=== PATIENT | female | born 1985 | race Caucasian/White ===

== ENCOUNTER → 2020-01-09 10:21 | Outpatient (BNVA) | payer OTHER, SELFPAY | PROVIDERS: PCP Family Medicine; Visit Provider Registered Nurse | DX: Z02.1 Encounter for pre-employment examination (principal) | CPT/HCPCS: 80307 ==

== ENCOUNTER → 2020-07-31 10:46 | Outpatient (BNVA) | payer MEDICAID, SELFPAY | PROVIDERS: PCP Family Medicine; Visit Provider Nurse Practitioner Family | DX: Z11.59 Encounter for screening for other viral diseases (principal); Z20.828 Contact with and (suspected) exposure to other viral communicable diseases; R05 Cough | CPT/HCPCS: 87635 ==

== ENCOUNTER → 2020-11-18 09:47 | Outpatient (BNVA) | payer MEDICAID, SELFPAY | PROVIDERS: PCP Registered Nurse; Visit Provider Registered Nurse | DX: M54.5 Low back pain (principal); S29.012A Strain of muscle and tendon of back wall of thorax, initial encounter; X58.XXXA Exposure to other specified factors, initial encounter | CPT/HCPCS: 81000 ==

== ENCOUNTER 2021-02-02 12:28 | Outpatient (CLI) | payer MEDICAID, SELFPAY ==
--- NOTE | 2021-02-02 12:36 | XRR_ITS ---
PROCEDURE INFORMATION: Exam: XR Cervical Spine Exam date and time: 02/02/2021 12:48 PM Age: 35 years old Clinical indication: Cervicalgia; Patient HX: Right arm numbness, fall in 2012 chronic pain since; Additional info: M54.2 - cervicalgia TECHNIQUE: Imaging protocol: XR of the cervical spine. Views: 2 or 3 views. COMPARISON: No relevant prior studies available. FINDINGS: Bones/joints: Diminished cervical lordosis and degenerative change. Anatomic alignment. Soft tissues: Unremarkable. XR/XR cervical spine 3V* [id number] IMPRESSION: Diminished cervical lordosis and degenerative change.
--- NOTE | 2021-02-02 12:36 | XRR_ITS ---
PROCEDURE INFORMATION: Exam: XR Thoracic Spine Exam date and time: 02/02/2021 12:48 PM Age: 35 years old Clinical indication: Other: Strain of muscle and tendon of unspecified wall of thorax; Additional info: S29.019a - strain of muscle and tendon of unspecified wall of thorax, initial encounter TECHNIQUE: Imaging protocol: XR of the thoracic spine. Views: 3 views. COMPARISON: No relevant prior studies available. FINDINGS: Bones/joints: No acute osseous pathology. Anatomic alignment. Subtle scoliosis. Soft tissues: Normal caliber of the paraspinous soft tissues. XR/XR thoracic spine 3V* [id number] IMPRESSION: No acute osseous pathology.
== END 2021-02-02 12:29 | disposition home or self-care (01) ==
LOC: RAD 12:35
PROVIDERS: PCP Registered Nurse; Visit Provider Nurse Practitioner Family
DX: M54.2 Cervicalgia (principal); S29.019A Strain of muscle and tendon of unspecified wall of thorax, initial encounter; X58.XXXA Exposure to other specified factors, initial encounter
CPT/HCPCS: 72040; 72072

== ENCOUNTER 2021-03-02 09:27 | Outpatient (CLI) | payer MEDICAID, SELFPAY ==
--- NOTE | 2021-03-02 09:30 | MR_ITS ---
WS: [id number] MRI CERVICAL SPINE NONCONTRAST HISTORY: M54.12 - Radiculopathy, cervical region COMPARISON: Cervical radiograph 02/02/2021 Technique: Multiplanar, multisequence noncontrast imaging of the cervical spine. Posterior alignment is normal. Very minimal disc space narrowing at C5-6 and C6-7. Signal within the cervical cord is normal. Visualized posterior fossa is unremarkable. Craniocervical junction, C1 and C2 relationship, odontoid process and soft tissues are normal. C2-C3: Normal. C3-C4: Very slight annular disc bulging. Mild osteophytic ridging. Mild narrowing of the proximal for amen due to osteophyte disease. Slightly greater on the LEFT. C4-C5: Diffuse annular disc bulging and osteophytic ridging. RIGHT paracentral osteophyte or disc ost eophyte complex causing mild deformity the ventral thecal sac but no significant stenosis or cord con tact. C5-C6: Mild osteophytic ridging greatest into the LEFT foramen. Mild posterior displacement of the ex iting nerve roots but no significant stenosis. C6-C7: Moderate diffuse bilateral osteophytic ridging. There is a central disc protrusion with annula r fissure. Near cord contact on the central disc protrusion. Mild RIGHT with moderate to severe LEFT foraminal stenosis and mild facet arthritis. C7-T1: Normal. There is an additional small protrusion at the T1-2 and T2-3 levels in the RIGHT foramen. No signific ant stenosis identified but only visualized on the sagittal projection. 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 MR/MR cervical spin wo con* [id number] IMPRESSION: 1. Multilevel disc osteophyte disease as described above. 2. Moderate to severe LEFT foraminal stenosis and facet arthritis at C6-7 with mild central and RIGHT foraminal stenosis. Predominantly due to combination of osteophytes and disc disease. 3. Mild narrowing of the LEFT foramen at C5-6 predominantly due to osteophyte disease. 4. Very small RIGHT paracentral disc or disc osteophyte complex at C4-5 withou t cord contact.
== END 2021-03-02 09:28 | disposition home or self-care (01) ==
PROVIDERS: PCP Nurse Practitioner Family; Visit Provider Nurse Practitioner Family
DX: M54.12 Radiculopathy, cervical region (principal); M48.02 Spinal stenosis, cervical region; M25.78 Osteophyte, vertebrae
CPT/HCPCS: 72141

== ENCOUNTER → 2021-03-17 11:13 | Outpatient (BNVA) | payer MEDICAID, SELFPAY | PROVIDERS: PCP Nurse Practitioner Family; Referring Provider Nurse Practitioner Family; Visit Provider Orthopaedic Surgery | DX: M25.551 Pain in right hip (principal) | CPT/HCPCS: 73502 ==

== ENCOUNTER 2021-05-12 06:00 | Outpatient (RCR) | payer MEDICAID, SELFPAY | END 2021-06-09 23:59 | disposition home or self-care (01) | LOC: SPT 06:00 | PROVIDERS: PCP Nurse Practitioner Family; Referring Provider Nurse Practitioner Family; Visit Provider Nurse Practitioner Family | DX: M48.02 Spinal stenosis, cervical region (principal) | CPT/HCPCS: 97110; 97161 ==

== ENCOUNTER 2021-06-10 06:00 | Outpatient (RCR) | payer MEDICAID, SELFPAY | END 2021-07-09 23:59 | disposition home or self-care (01) | LOC: SPT 06:00 | PROVIDERS: PCP Nurse Practitioner Family; Referring Provider Nurse Practitioner Family; Visit Provider Nurse Practitioner Family | DX: M48.02 Spinal stenosis, cervical region (principal) | CPT/HCPCS: 97110 ==

== ENCOUNTER 2021-07-07 06:00 | Outpatient (RCR) | payer MEDICAID, SELFPAY | END 2021-07-09 23:59 | disposition home or self-care (01) | LOC: SPT 06:00 | PROVIDERS: PCP Nurse Practitioner Family; Referring Provider Orthopaedic Surgery; Visit Provider Orthopaedic Surgery | DX: M25.551 Pain in right hip (principal) | CPT/HCPCS: 97110; 97161 ==

== ENCOUNTER 2021-07-10 06:00 | Outpatient (RCR) | payer MEDICAID, SELFPAY | END 2021-08-09 23:59 | disposition home or self-care (01) | LOC: SPT 06:00 | PROVIDERS: PCP Nurse Practitioner Family; Visit Provider Orthopaedic Surgery | DX: M25.551 Pain in right hip (principal) | CPT/HCPCS: 97110 ==

== ENCOUNTER 2021-08-10 06:00 | Outpatient (RCR) | payer MEDICAID, SELFPAY | END 2021-09-08 23:59 | disposition home or self-care (01) | LOC: SPT 06:00 | PROVIDERS: PCP Nurse Practitioner Family; Visit Provider Orthopaedic Surgery | DX: M25.551 Pain in right hip (principal) | CPT/HCPCS: 97110 ==

== ENCOUNTER 2021-09-09 06:00 | Outpatient (RCR) | payer MEDICAID, SELFPAY | END 2021-10-09 23:59 | disposition home or self-care (01) | LOC: SPT 06:00 | PROVIDERS: PCP Nurse Practitioner Family; Visit Provider Orthopaedic Surgery | DX: M25.551 Pain in right hip (principal) | CPT/HCPCS: 97110 ==

== ENCOUNTER → 2021-10-28 11:00 | Outpatient (BNVA) | payer MEDICAID, SELFPAY | PROVIDERS: PCP Nurse Practitioner Family; Visit Provider Nurse Practitioner Family | DX: Z20.822 Contact with and (suspected) exposure to COVID-19 (principal); R05.9 Cough, unspecified | CPT/HCPCS: 87633; 87635 ==

== ENCOUNTER → 2021-12-30 10:35 | Outpatient (BNVA) | payer MEDICAID, SELFPAY | PROVIDERS: PCP Nurse Practitioner Family; Visit Provider Nurse Practitioner Family | DX: R53.83 Other fatigue (principal); E78.5 Hyperlipidemia, unspecified; I10 Essential (primary) hypertension | CPT/HCPCS: 80053; 80061; 84443; 85025 ==

== ENCOUNTER → 2022-01-05 14:06 | Outpatient (BNVA) | payer MEDICAID, SELFPAY | PROVIDERS: PCP Nurse Practitioner Family; Visit Provider Nurse Practitioner Family | DX: Z12.4 Encounter for screening for malignant neoplasm of cervix (principal) | CPT/HCPCS: 88175 ==

== ENCOUNTER 2022-02-18 13:30 | Outpatient (CLI) | payer MEDICAID, SELFPAY ==
--- NOTE | 2022-02-18 13:41 | MM_ITS ---
WS: [id number] BILATERAL 3D TOMOSYNTHESIS DIGITAL SCREENING MAMMOGRAM WITH CAD CLINICAL INFORMATION: Z12.39 - Encounter for other screening for malignant neop... HISTORY: Screening mammogram. COMPARISON: April 06, 2010 TECHNIQUE: Bilateral CC and MLO. FINDINGS: The breast are composed of extremely dense tissue, which can limit the detection of small underlying mass lesions. 8mm ovoid density inner quadrant LEFT breast posterior depth at the chest wall. Recomme nd further evaluation with spot compression views and ultrasound. RIGHT breast is unremarkable. Incid ental punctate calcifications. MM/[place] [id number] IMPRESSION: BI-RADS: 0-Incomplete: Need additional imaging evaluation FOLLOW UP: Need Additional Imaging Recommend LEFT breast diagnostic mammography with spot compression views and ul trasound.
== END 2022-02-18 13:31 | disposition home or self-care (01) ==
LOC: RAD 13:33
PROVIDERS: PCP Nurse Practitioner Family; Visit Provider Nurse Practitioner Family
DX: R92.2 Inconclusive mammogram (principal); R92.1 Mammographic calcification found on diagnostic imaging of breast
CPT/HCPCS: 77063; 77067

== ENCOUNTER 2022-04-01 10:51 | Outpatient (CLI) | payer MEDICAID, SELFPAY ==
--- NOTE | 2022-04-01 11:03 | MM_ITS ---
WS: [id number] LEFT 3D TOMOSYNTHESIS DIGITAL MAMMOGRAPHY WITH CAD CLINICAL INFORMATION: N63.20 - Unspecified lump in the left breast, unspecified... COMPARISON: February 18, 2022 TECHNIQUE: 3 views of the left breast were obtained. FINDINGS: The left breast is composed of heterogeneous fibroglandular density tissue, which can limit the detec tion of small underlying mass lesions. 8 mm ovoid density inner quadrant LEFT breast posterior depth near the chest wall appears stable. Ultrasound is pending. ULTRASOUND BREAST LEFT TECHNIQUE: Ultrasound left breast focused area of concern. CLINICAL INFORMATION: N63.20 - Unspecified lump in the left breast, unspecified... COMPARISON: None. FINDINGS: Ultrasound LEFT breast at the 5 to 12:00 position. Several incidental simple cysts are identified lar gest 5:00 position measuring 9.3 x 8.2 x 11 mm. Ductal ectasia at the 6:00 position. Additional small er cysts at the 9:00 position measuring 4 to 6 mm. A few incidental septations. Findings are benign. MM/[place] [id number] IMPRESSION: BI-RADS: 2-Benign FOLLOW UP: 1 Year Follow-up Recommend return to annual screening mammography.
== END 2022-04-01 10:52 | disposition home or self-care (01) ==
LOC: RAD 10:53
PROVIDERS: PCP Nurse Practitioner Family; Visit Provider Nurse Practitioner Family
DX: N63.20 Unspecified lump in the left breast, unspecified quadrant (principal); N60.02 Solitary cyst of left breast
CPT/HCPCS: 76642; 77061

== ENCOUNTER 2022-07-14 04:45 | Emergency (ER) | payer MEDICAID, SELFPAY ==
[2022-07-14 04:49] VITALS: BP 133/78; PULSE 71; RESP 16; TEMP 36.7; O2SAT 94; BMI 25.0
--- NOTE | 2022-07-14 04:53 | XRR_ITS ---
PROCEDURE INFORMATION: Exam: XR Chest Exam date and time: 07/14/2022 4:56 AM Age: 36 years old Clinical indication: Patient HX: Sudden onset of upper back pain this a. M. No injury. TECHNIQUE: Imaging protocol: Radiologic exam of the chest. Views: 1 view. COMPARISON: MR cervical spin wo con* [id number] 03/02/2021 9:46 AM FINDINGS: Lungs: No focal airspace disease. Pleural spaces: Unremarkable. No pleural effusion. No pneumothorax. Heart/Mediastinum: Cardiomediastinal silhouette is within normal limits. Bones/joints: Unremarkable. XR/XR chest 1V portable [id number] IMPRESSION: No acute cardiopulmonary abnormality.
--- NOTE | 2022-07-14 04:53 | XRR_ITS ---
PROCEDURE INFORMATION: Exam: XR Thoracic Spine Exam date and time: 07/14/2022 4:56 AM Age: 36 years old Clinical indication: Pain in thoracic spine; Patient HX: Sudden onset of upper back pain this a. M. No injury. TECHNIQUE: Imaging protocol: Radiologic exam of the thoracic spine. Views: 3 views. COMPARISON: CR XR thoracic spine 3V* [id number] 02/02/2021 12:56 PM FINDINGS: Bones/joints: No acute fracture or malalignment. Disc spaces are maintained. Soft tissues: Unremarkable. XR/XR thoracic spine 3V* [id number] IMPRESSION: No acute fracture or malalignment.
[2022-07-14 04:54] VITALS: PULSE 71; RESP 17; O2SAT 98
--- NOTE | 2022-07-14 05:01 | ED_ITS ---
HPI - Back Pain/Injury General: Chief Complaint: Back Pain/Injury Stated Complaint: Sharp Pain Down hjer Spine Time Seen by Provider: 07/14/22 04:46 Source: patient Mode of arrival: ambulatory Limitations: no limitations History of Present Illness: 28-year-old female states that she got up out of bed and had a sudden severe sharp pain in her upper back into her left shoulder blade. She states that she has been having shooting pains from that shoulder over the last 2 weeks and has appointment a chiropractor. States the pain is severe had some slight blurred vision due to the pain states is since resolved her pain is currently a 1 out of 10. She has no weakness no numbness to her arms. She denies any worsening proving factors. Associated symptoms: Deny abdominal pain, chills, dysuria, fever(s), nausea or vomiting Review of Systems Const: Denies: fever(s), chills, body aches or change in appetite Eyes: Denies: blurry vision or eye discomfort ENMT: Denies: throat pain or dental pain Card: Denies: chest pain Resp: Denies: dyspnea GI: Denies: abdominal pain, nausea, vomiting or diarrhea : Denies: dysuria Musc: Reports: back pain Skin/Breast: Denies: rash Neuro: Denies: headache(s) Psych: Denies: depression Santo/Lymph: Denies: easy bruising All/Imm: Denies: urticaria PFSH ED PFSH: Medical History Cervical spine pain Surgical History Hx of section Hx of sinus surgery Hx of tonsillectomy Family History Father Cancer melanoma Social History Smoking and tobacco status: current every day smoker Female Reproductive History: Date of last menstrual period: 07/14/22 Physical Exam Const: COMMON NORMALS: no acute distress, patient oriented x3 and healthy appearing HENMT: COMMON NORMALS: normocephalic and atraumatic HEAD & SCALP: normocephalic and atraumatic Eye: COMMON NORMALS: Equal, round and reactive pupils present and EOMs intact bilaterally PUPIL: Yes Equal, round and reactive pupils present Neck/C-Spine: COMMON NORMALS: full ROM and supple Chest: COMMONS NORMALS: normal inspection of the chest and normal palpation of entire chest wall Resp: COMMON NORMALS: normal respiratory effort, No retractions, No use of accessory muscles and clear to auscultation bilaterally AUSCULTATION: clear to auscultation bilaterally Cardio: COMMON NORMALS: regular rate, regular rhythm and No murmurs present (Cardio) RATE: regular rate RHYTHM: regular rhythm GI: COMMON NORMALS: Normal to inspection, nondistended, normoactive bowel sounds present, Soft to palpation, non-tender and no masses PALPATION: Yes Soft to palpation Back/Pelvis: OTHER: Paraspinal tenderness along the T-spine no midline tenderness Extremity: COMMON NORMALS: normal to inspection and full ROM Neuro: COMMON NORMALS: patient oriented x3, moves all extremities and no focal motor deficits Psych: COMMON NORMALS: mental status grossly normal, Normal thought process present and cooperative THOUGHT PROCESS: Normal thought process present Skin: COMMON NORMALS: no rashes or lesions noted and no wounds GENERAL SKIN EXAM: no rashes or lesions noted Course Vital Signs: Vital signs: Vital Signs Temperature 98.1 F 07/14/22 04:49 Pulse Rate 71 07/14/22 04:54 Respiratory Rate 17 07/14/22 04:54 Blood Pressure 133/78 07/14/22 04:49 Pulse Oximetry 98 07/14/22 04:54 Oxygen Delivery Me thod 07/14/22 04:54 MDM - Back Pain/Injury Medical Decision Making Patient presents here with back pain is likely muscular in nature her pains improved here she has no signs of cord compression no signs of cardiac cause we will place her on Naprosyn Robaxin and she is stable for discharge she is return if worsening. Discharge Plan Discharge Patient Disposition: Home Clinical Impression: Thoracic back pain Condition: Stable Prescriptions: New methocarbamol 750 mg tablet 750 mg PO Q6H PRN (Reason: spasms) Qty: 20 0RF Naprosyn 500 mg tablet 500 mg PO BID PRN (Reason: pain) Qty: 20 0RF Discharge Orders: Discharge ED (Routine); Ordered 07/14/22 Ordered By: Khanh Espinosa Referrals: Ghassan,Cinthya, RETIREMENT ADMINISTRATOR [Primary Care Provider] - 1-3 days Discharge Diet: Advance as tolerated Discharge Activity: Resume usual activity Patient Instructions: Back Pain (ED) Coding Level of Care Code ED Acds Block 1 Operator for Leighann Fwd Exam Comprehensive
[2022-07-14] MEDS: ketorolac 30 mg/mL INJ IM (05:12)
[2022-07-14] MEDS: dexamethasone 10 mg/mL INJ IM (05:12)
--- NOTE | 2022-07-14 05:19 | ECG_ITS ---
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 Measurements Intervals [place] Rate: 64 P: 41 MO: 155 QRS: 31 QRSD: 93 T: 20 QT: 417 QTc: 432 Interpretive Statements SINUS RHYTHM WITH SINUS ARRHYTHMIA POSSIBLE RIGHT VENTRICULAR CONDUCTION DELAY [RSR (QR) IN V1/V2] No previous ECG available for comparison Electronically Signed On 07-14-2022 20:53:55 CDT by Abigail Curtis M.D. [id number]
[2022-07-14 05:22] VITALS: BP 133/78; PULSE 56; RESP 16; O2SAT 99
== END 2022-07-14 05:32 | disposition home or self-care (01) ==
PROVIDERS: Emergency Provider Emergency Medicine; PCP Nurse Practitioner Family
DX: M54.6 Pain in thoracic spine (principal); F17.210 Nicotine dependence, cigarettes, uncomplicated
CPT/HCPCS: 71045; 72072; 93005; 96372; 99284; J1100; J1885

== ENCOUNTER 2022-09-13 10:46 | Outpatient (CLI) | payer MEDICAID, SELFPAY ==
--- NOTE | 2022-09-13 10:54 | XR_ITS ---
WS: [id number] EXAMINATION: XR shoulder LT min 2V* [id number] DATE: 09/13/2022 11:05 AM CLINICAL HISTORY: Left shoulder pain TECHNIQUE: 2 views of the left shoulder were obtained. COMPARISON: None X-RAY FINDINGS: No fractures or dislocations. Normal motion of the shoulder with internal/external rotation. No degenerative changes. Acromioclavicular joint appears unremarkable. Limited visualization of the adjacent hemithorax is unremarkable. XR/XR shoulder LT min 2V* [id number] IMPRESSION: No fractures or dislocations of the left shoulder.
== END 2022-09-13 10:47 | disposition home or self-care (01) ==
LOC: RAD 10:47
PROVIDERS: PCP Nurse Practitioner Family; Visit Provider Nurse Practitioner Family
DX: M25.512 Pain in left shoulder (principal)
CPT/HCPCS: 73030

== ENCOUNTER 2022-10-21 07:04 | Outpatient (CLI) | payer MEDICAID, SELFPAY ==
--- NOTE | 2022-10-21 07:15 | MR_ITS ---
WS: [id number] MRI LEFT SHOULDER HISTORY: M25.512 - Pain in left shoulder, pain for 6 months. No injury. COMPARISON: None available. TECHNIQUE: Multiplanar sequences of the shoulder joint are submitted. Mild AC joint arthritis. Narrowing of the AC joint with a small amount of adjacent edema. Prominent, 5 mm osteophyte from the distal inferior clavicle encroaches upon the supraspinatus myotendinous inse rtion. 5 mm osteophyte from the distal undersurface of the acromion with mild subacromial impingement . Very small amount of fluid in the subdeltoid bursa. No os acromion. Biceps tendon in normal positio n. Normal alignment of the glenohumeral joint. No muscle atrophy or edema. No rotator cuff tear. Normal glenoid. MR/MR shoulder LT wo con* [id number] IMPRESSION: 1. Moderate AC joint arthritis. 2. 5 mm osteophyte from the distal inferior clavicle encroaches upon the supra spinatus myotendinous insertion. 3. Mild subacromial impingement by a 5 mm osteophyte.
== END 2022-10-21 07:05 | disposition home or self-care (01) ==
LOC: RAD 07:06
PROVIDERS: PCP Nurse Practitioner Family; Visit Provider Nurse Practitioner Family
DX: M25.512 Pain in left shoulder (principal); M25.812 Other specified joint disorders, left shoulder
CPT/HCPCS: 73221

== ENCOUNTER → 2022-11-01 10:32 | Outpatient (BNVA) | payer MEDICAID, SELFPAY | PROVIDERS: PCP Nurse Practitioner Family; Referring Provider Nurse Practitioner Family; Visit Provider Specialist | DX: M25.512 Pain in left shoulder (principal) | CPT/HCPCS: 73030 ==

== ENCOUNTER → 2023-05-26 13:21 | Outpatient (BNVA) | payer MEDICAID, SELFPAY | PROVIDERS: PCP Nurse Practitioner Family; Visit Provider Registered Nurse | DX: Z20.822 Contact with and (suspected) exposure to COVID-19 (principal) | CPT/HCPCS: 87426 ==

== ENCOUNTER 2024-07-17 07:25 | Outpatient (CLI) | payer MEDICAID, SELFPAY ==
--- NOTE | 2024-07-17 07:31 | CT_ITS ---
WS: [id number] CT NECK TECHNIQUE: Contrast-enhanced CT of the neck with coronal and sagittal reformatted images. CLINICAL INFORMATION: OTALGIA, RIGHT EAR COMPARISON: None. DLP: 470.[address] [facility] use at least one of these dose optimization techniques: automated e xposure control; mA and/or kV adjustment per patient size (includes targeted exams where dose is matc hed to clinical indication); or iterative reconstruction. FINDINGS: Elongation of the styloid with ossification of the stylohyoid ligament. This can be seen with Alutiiq's syndrome. Recommend correlation with clinical symptoms. Mastoid air cells are well aerated. Paranasal sinuses are well aerated. Tiny retention cyst RIGHT max illary sinus. Normal posterior nasopharynx. Normal parapharyngeal fat. Parotid glands are normal. Nor mal submandibular glands. No evidence of supraglottic or glottic mass. Small nodules in the thyroid LEFT greater than RIGHT. Largest nodules in the LEFT measure 1.5 cm. Em physematous changes in the lung apices. Straightening of the normal cervical lordosis. Mild spondylit ic changes. CT/CT neck w con* [id number] IMPRESSION: 1. Elongation of the styloid with ossification of the stylohyoid ligament. Thi s can be seen with Alutiiq's syndrome. Slight indentation on the RIGHT greater th an LEFT hypopharynx. Recommend correlation with symptoms. 2. Normal salivary glands. 3. No cervical lymphadenopathy. 4. No evidence of supraglottic or glottic mass. 5. A few small thyroid nodules the largest in the LEFT measuring 1.5 cm.
--- NOTE | 2024-07-17 07:32 | CT_ITS ---
WS: [id number] CT SINUSES TECHNIQUE: Noncontrast CT of the paranasal sinuses with coronal and sagittal reformatted images. CLINICAL INFORMATION: OTHER CHRONIC SINUSITIS COMPARISON: None. DLP: 470.[address] scans at [facility] use at least one of these dose optimization techniques: automated e xposure control; mA and/or kV adjustment per patient size (includes targeted exams where dose is matc hed to clinical indication); or iterative reconstruction. FINDINGS: Minimal LEFT to RIGHT nasal septal deviation measuring 2 to 3 mm. Ostiomeatal units are patent. Tiny retention cyst infraorbital RIGHT maxillary sinus measuring 7 mm. Mastoid air cells are well aerated. Paranasal sinuses are well aerated. Frontal sinuses and frontoethmoidal recesses are patent. Sphenoi d sinus ostia are patent. Tiny retention cyst RIGHT inferior maxillary sinus measuring 3.5 mm. Normal posterior nasopharynx. Normal parapharyngeal fat. CT/CT sinus wo con* [id number] IMPRESSION: 1. Minimal LEFT RIGHT nasal septal deviation measuring 2 to 3 mm 2. 7 mm infraorbital retention cyst RIGHT maxillary sinus. Additional 3.5 mm retention cyst RIGHT inferior maxillary sinus. 3. Paranasal sinuses are otherwise well aerated. 4. Ostiomeatal units are patent. 5. Mastoid air cells are well aerated. 6. No other acute findings.
[2024-07-17] MEDS: iohexol 350 mg/mL 500 mL Btl (per mL) IV (07:55)
== END 2024-07-17 07:26 | disposition home or self-care (01) ==
LOC: RAD 07:26
PROVIDERS: PCP Nurse Practitioner Family; Visit Provider Specialist
DX: H92.01 Otalgia, right ear (principal); J34.2 Deviated nasal septum; J34.1 Cyst and mucocele of nose and nasal sinus; M61.9 Calcification and ossification of muscle, unspecified; M85.88 Other specified disorders of bone density and structure, other site
CPT/HCPCS: 70486; 70491

== ENCOUNTER 2025-04-30 07:40 | Outpatient (CLI) | payer MEDICAID, SELFPAY ==
--- NOTE | 2025-04-30 08:00 | US_ITS ---
WS: [id number] Complete ABDOMINAL ULTRASOUND HISTORY: Cholelithiasis COMPARISON: None available. Liver: 16.1 cm in length. Normal size liver and echogenicity. No bile duct dilatation or mass. Portal Vein: Normal hepatopetal flow with monophasic waveform. Gallbladder: Normally distended gallbladder with a large stone. No wall thickening or pericholecystic fluid. Gallstone measures 1.9 cm in diameter. CBD: 0.3 cm Pancreas: Limited visualization. Right kidney: 10.2 cm x 5.1 x 3.8 cm. Cortex:1.2 cm. Normal size and echogenicity. No hydronephrosis or mass. Left kidney: 10.6 cm x 4.6 cm x 4.5 cm. Cortex: 1.4 cm. Normal size and echogenicity. No hydronephrosis or mass. Spleen: 10.4 cm. Normal size and echogenicity. Aorta and IVC: Unremarkable abdominal aorta and IVC. US/US abdomen complete* [id number] Impression: 1. Cholelithiasis without evidence for acute cholecystitis. 2. Normal common bile duct. 3. Remaining ultrasound abdomen is negative.
== END 2025-04-30 07:41 | disposition home or self-care (01) ==
LOC: RAD 07:43
PROVIDERS: PCP Nurse Practitioner Family; Visit Provider Student in an Organized Health Care Education/Training Program
DX: K80.20 Calculus of gallbladder without cholecystitis without obstruction (principal)
CPT/HCPCS: 76700

== ENCOUNTER 2025-05-22 08:31 | Day surgery (SDC) | payer MEDICAID, SELFPAY ==
[2025-05-22] VITALS (10 sets, daily range): BP systolic 111–150; BP diastolic 69–80; PULSE 51–83; RESP 15–21; TEMP 36.1–36.4; O2SAT 90–97; BMI 25.7
--- NOTE | 2025-05-22 08:45 | W.PM.OPSFHP ---
Same Day Surgery H&P Indication for Procedure/HPI DATE OF PROCEDURE: May 22, 2025 CHIEF COMPLAINT/INDICATIONFOR SURGICAL PROCEDURE: symptomatic cholelithiasis PREOP DIAGNOSIS: symptomatic cholelithiasis PLANNED PROCEDURE: Operation Date: 05/22/25 10:40 Proposed Procedures p Laparoscopic Cholecystectomy Lap Adeal 38937 K80.20(Not Applicable) - Bran Eli MD Medications/Allergies* Home Medications ?Medication ?Instructions ?Recorded ?Confirmed ?Type No Known Home Medications 05/21/25 05/21/25 History Allergies/Adverse Reactions Allergy/AdvReac Type Severity Reaction Status Date / Time metronidazole (From Flagyl) Allergy Mild upset Verified 04/08/25 10:15 stomach Pertinent History/Comorbid Conditions* Medical History (Updated 04/08/25 @ 14:53 by Bran Eli MD) Cervical spine pain Surgical History (Updated 08/26/20 @ 09:07 by CRISTAL Baum) Hx of tonsillectomy Hx of sinus surgery Hx of section Family History (Updated 09/07/22 @ 13:16 by Nakia Solomon LPN) CAD (coronary artery disease) Father Family/Other Mother Dementia Family/Other Lung disease Family/Other Mother Brother Cancer Father melanoma Hypertension Father Mother Brother Stroke Family/Other Denies family history of Diabetes Chronic kidney disease (CKD) Bleeding disorder Social History Smoking and tobacco/nicotine status: never used tobacco/nicotine Quit status (tobacco/nicotine): has tried quititng Alcohol intake: current Alcohol intake frequency: holidays/special occasions only Substance/Drug Use: never Adopted: No Lives independently: Yes Household members: significant other and children Housing: House Pertinent Exam Findings alert, oriented x 3, clear to auscultation bilaterally, regular rate & rhythm and procedure specific exam findings abdomen soft, nt, nd Recommendations Risks and benefits of procedure reviewed and Patient/family agree to proceed Surgery/Procedure today Other Plans: Patient understands that the risks of the surgery include postoperative infection, bleeding, bile leak, incisional hernia, and in very rare instances injuries to the bowel, common bile duct, portal vein, and liver failure. Coding Level of Care Code Acute Code for Chg Fwd
--- NOTE | 2025-05-22 08:56 | ANES.PREANE2 ---
Pre-Anesthetic Assessment Height/Weight: Height 5 ft 5 in Weight 155 lb Temp Pulse Resp BP Pulse Ox O2 Del Method 97.6 F 51 L 16 113/69 97 Room Air 05/22/25 08:49 05/22/25 08:49 05/22/25 08:49 05/22/25 08:49 05/22/25 08:49 05/22/25 08:49 Preop Diagnosis: symptomatic cholelithiasis Operation Date: 05/22/25 10:40 Proposed Procedures p Laparoscopic Cholecystectomy Lap Adela 12289 K80.20(Not Applicable) - Bran Eli MD Was Beta Shelton taken within 24 hours: N/A Was Clonidine taken within 24 hours: N/A Last intake: Intake Last Liquid Date 05/21/25 Last Liquid Time 21:00 Last Solid Date 05/21/25 Last Solid Time 21:00 Social No alcohol and No tobacco Exam alert, oriented x 3, clear to auscultation bilaterally and regular rate & rhythm Airway Submandibular: within normal limits Cervical ROM: within normal limits Mallampati: Class II Dentition: full Anesthetic Plan ASA status: 2 Anesthesia: General Other: No prior issues with anesthesia NPO since yesterday evening Symptomatic cholelithiasis Denies any cardiac issues Patient states that she is supposed to see a raw products director next week due to recurrent pneumonia No current lung problems METs greater than 4 Plan for GETA Medications/Allergies Home Medications ?Medication ?Instructions ?Recorded ?Confirmed ?Last Taken ?Type No Known Home Medications 05/21/25 05/21/25 Unknown History Allergies Allergy/AdvReac Type Severity Reaction Status Date / Time metronidazole (From Flagyl) AdvReac Mild upset Verified 05/22/25 08:48 stomach PFSH Anesthesia Medical History (Updated 04/08/25 @ 14:53 by Bran Eli MD) Cervical spine pain Surgical History Hx of tonsillectomy Hx of sinus surgery Hx of section Family History Father Cancer melanoma CAD (coronary artery disease) Hypertension Family/Other CAD (coronary artery disease) Dementia Lung disease Stroke Mother CAD (coronary artery disease) Lung disease Hypertension Brother Hypertension Lung disease Denies family history of Diabetes Chronic kidney disease (CKD) Bleeding disorder Social History Smoking and tobacco/nicotine status: never used tobacco/nicotine Quit status (tobacco/nicotine): has tried quititng Alcohol intake: current Alcohol intake frequency: holidays/special occasions only Substance/Drug Use: never Adopted: No Lives independently: Yes Household members: significant other and children Housing: House
[2025-05-22] MEDS: ceFAZolin 2,000 mg SDV 2000 MG IVP (09:00)
[2025-05-22 09:03] LABS: OR HCG Qualitative Urine Negative (Negative)
[2025-05-22] MEDS: lidocaine-epi 1% 20 mL INJ 10 ML INJECTION (10:08)
--- NOTE | 2025-05-22 10:08 | PM.OP ---
Operative Report Date of procedure: May 22, 2025 Pre-op diagnosis: Symptomatic cholelithiasis Post-op diagnosis: Chronic cholecystitis Post-op findings: Changes consistent with chronic cholecystitis. Procedure done: Laparoscopic cholecystectomy Implants: N/A Specimens removed/disposition: Gallbladder sent to pathology Pathology: Gallbladder sent to pathology Surgeon: Bran Eli MD Reproduction Machine Loader: N/A Anesthesia: General Estimated blood loss (mL): 10 Complications: N/A Findings: Changes consistent with chronic cholecystitis. Condition: stable Disposition: same day Brief History: 39-year-old female who presented with symptomatic cholelithiasis. Discussed risk and benefits and patient agreed to proceed with laparoscopic cholecystectomy possible open. Procedure: I discussed the risks and benefits of laparoscopic cholecystectomy possible open, and obtained consent prior to proceeding to the operating room. SCDs were utilized. Prophylactic antibiotics were administered. General anesthesia was induced. The patient was placed supine, and was prepped and draped in the usual sterile fashion. Insufflation to 15mmHg was achieved using a Veress needle at Tucker's point. A 5mm optiview trocar was placed at the umbilicus under direct visualization. The left upper quadrant was inspected, and no injuries were noted. Two 5mm ports were placed in the right upper quadrant, and a 12mm working port was placed in the epigastrium. The gallbladder was then retracted cephalad through the lateral RUQ port, and the infundibulum grabbed through the medial RUQ port and retracted laterally. The gallbladder was inflammed consistent with the diagnosis of chronic cholecystitis. I proceeded to score the peritoneum over the medial aspect of the gallbladder using a laparoscopic hook with electrocautery. Then the infundibulum was retracted medially in order to score the peritoneum over the lateral aspect of the galbladder. Using a combination of energy and blunt dissection with the [place] and a Kittner dissector, the cystic artery and cystic duct were dissected. I then proceeded to dissect the cystic plate in order to to achieve the critical view of safety (CVS - hepatocystic triangle was cleared of fat and fibrous tissue, the lower one-third of the gallbladder was from the liver to expose the cystic plate, two and only two structures were seen entering the gallbladder, the cystic duct and the cystic artery). The cystic artery and the cystic duct were clipped three times (leaving two clips on the proximal end of both structures). I then proceeded to dissect the gallbladder off the liver using hook electrocautery. The specimen was placed in an endocatch bag and retrieved from the abdomen through the port on the epigastrium. I then inspected the gallbladder fossa and confirmed adequate hemostasis and the absence of any bile leaks. The gallbladder fossa was then cauterized again. Prior to ending the laparoscopic portion, I examined the rest of the abdomen and did not find any abnormalities or injuries. The abdomen was then desufflated. Skin was closed using 4-0 monocryl and surgical glue. The patient woke up from anesthesia and transferred to PACU without any complications.
--- NOTE | 2025-05-22 11:25 | ANE.PACU2 ---
Inpatient post-anesthesia follow up: Airway intact: Yes Vital signs: Temperature 97.1 F Pulse Rate 66 Respiratory Rate 16 Blood Pressure 111/75 Pulse Oximetry 93 Oxygen Delivery Me thod Room Air Oxygen Flow Rate Fraction of Inspir ed Oxygen Hydration adequate: Yes Nausea and vomiting: No Pain level: 1 Mental status: Baseline
== END 2025-05-22 11:25 | disposition home or self-care (01) ==
PROVIDERS: Student in an Organized Health Care Education/Training Program; PCP Nurse Practitioner Family; Visit Provider Student in an Organized Health Care Education/Training Program
PROC: 0FT44ZZ Resection of Gallbladder, Percutaneous Endoscopic Approach (ICD-10-PCS; CPT 47562; principal; 2025-05-22 10:40)
DX: K80.10 Calculus of gallbladder with chronic cholecystitis without obstruction (principal); F17.200 Nicotine dependence, unspecified, uncomplicated
CPT/HCPCS: 47562; 81025; 88304; J0690; J1100; J1885; J2250; J2405; J2704; J3010; J3490; J7030; J9999